=== PATIENT | female | born 1995 | race Caucasian/White ===

== ENCOUNTER 2018-09-08 21:27 | Emergency (ER) | payer SELFPAY ==
[~2018-09-08] VITALS: Ht 165.1 cm; Wt 48.6 kg
[2018-09-08 21:32] VITALS: TEMP 97.6
[2018-09-08 22:03] LABS: HEMOGLOBIN 11.3 g/dl (12.5-16.0); MEAN CELL VOLUME 89 fl (80.0-100.0); MEAN CORPUSCULAR HEMOGLOBIN 28 pg (27.0-31.0); MEAN CORPUSCULAR HGB CONC 32 g/dl (33.0-37.0); MEAN PLATELET VOLUME 8.9 fl (7.4-10.4); PLATELET COUNT 256 K/mm3 (130-400); RED BLOOD COUNT 4.01 M/mm3 (4.10-5.30); REDCELL DISTRIBUTION WIDTH-CV 12.1 % (11.5-14.5)
[2018-09-08 22:15] LABS: HEMATOCRIT 35.5 % (37.0-47.0)
[2018-09-08 22:16] LABS: ALANINE AMINOTRANSFERASE 17 U/L (9-52); ALBUMIN 4.1 gm/dL (3.5-5.0); ALKALINE PHOSPHATASE 27 U/L (50-136); ANION GAP 6 mmol/L (7-16); AST,SGOT 18 U/L (15-37); BILIRUBIN,TOTAL 0.5 mg/dL (0.0-1.0); BLOOD UREA NITROGEN 16 mg/dL (7-17); C-REACTIVE PROTEIN < 0.5 mg/dL (0.0-0.9); CALCIUM 8.6 mg/dL (8.4-10.2); CARBON DIOXIDE 26 mmol/L (22-30); CHLORIDE 106 mmol/L (98-107); CREATININE, serum 0.79 mg/dL (0.52-1.25); GLUCOSE 154 mg/dL (74-106); POTASSIUM 3.8 mmol/L (3.4-5.0); SODIUM 138 mmol/L (137-145)
[2018-09-08 22:24] LABS: EOSINOPHIL 5 % (0-4); LYMPHOCYTE 71 % (20.0-51.0); NEUTROPHILS 21 % (42.0-75.2)
[2018-09-08 22:25] LABS: PLATELET ESTIMATE NORMAL (NORMAL)
[2018-09-08 23:05] VITALS: BP 106/68; PULSE 79
== END 2018-09-08 23:05 | disposition home or self-care (01) ==
LOC: COL.ER 21:27
PROVIDERS: Emergency Medicine
DX: B34.9 Viral infection, unspecified (principal); F41.9 Anxiety disorder, unspecified